=== PATIENT | male | born 1945 | race Two or more races ===

== ENCOUNTER → 2016-11-11 | Outpatient (CLI) | payer MEDICARE, OTHER ==
[~2016-11-11] MED LIST: FAMO20TA18 PO; VIMOVO PO; VITAMIN D PO
--- NOTE | 2016-11-11 14:42 | RADRPT ---
PROCEDURE: Left knee radiographs. CLINICAL INDICATION: Left knee pain. Postop. TECHNIQUE: Three views. Weight bearing. Frontal, lateral, and patellar view. COMPARISON: 07/02/2016. FINDINGS: There is no fracture or dislocation. The soft tissues are normal. There is a total left knee constrained arthroplasty which appears satisfactory. There is no lytic or blastic lesion. There is no joint effusion. IMPRESSION: 1. Satisfactory postoperative appearance of the left knee. RPTAT: QQ .Charles Carnes MD, Date Time Electronically viewed and signed by .Charles Carnes MD, on 11/11/2016 14:42 .R/
--- NOTE | 2016-11-12 07:43 | HKNOTE ---
DATE OF SERVICE: 11/11/2016 HISTORY OF PRESENT ILLNESS: This is a 71-year-old male who presents today for followup regarding left total knee arthroplasty performed on 05/26/2016. The patient is 6 months postop and doing well. The patient states that at times of cold temperature/weather, he experiences aching to the knee. Patient has episodes of mild sharp pain to the left knee that occur typically once a week. States that [id number] Tylenol helps alleviate those symptoms. Patient is very pleased status post surgery as he is able to walk for extended amounts of time with no limit. The patient denies any falls. Denies any calf pain, chest pain or shortness of breath. No signs of any DVT. The patient has been performing his activities of daily living without complaint, status post knee replacement. The patient has also had a right total knee arthroplasty in the past which also continues to do well. OBJECTIVE: VITAL SIGNS: Blood pressure 188/84, temperature 98.4 degrees, pulse 60, respiratory rate 12, height 5 feet 8 inches, weight 202 pounds. Gait is normal and nonantalgic. Well healed scarring to the left knee. There is about 5 to 10-degree lag from full extension and flexion up to 125 to 130 degrees. No pain with range of motion. No tenderness to palpation. Normal sensory examination to light touch. Negative Homans sign. X-RAY: Mild posterior slope to the proximal tibia on lateral view. All components appear well aligned and appear to be well attached and integrated to the bone. No signs of any lucency between metal and bone. ASSESSMENT AND PLAN: 1. Patient remains in possession of antibiotic card. 2. Dental prophylaxis discussed in detail with patient today. 3. The patient may continue activities of daily living. As always, patient was recommended to avoid high stressful activities to the knee. At this stage, the patient continues to progress well. He may follow up on as needed basis. It was made clear to the patient, however, should he experience any issues with either knee, he may call in for repeat evaluation as we would be glad to see him. Dr. Donato has also seen patient today in office and agrees with the plan. Dictated By: SUMIT FAIRBANKS for ELIZABETH DONATO MD, KP/MAI Conf#: [id number] [facility]#: [id number] MTDD
== END | disposition home or self-care (01) ==
LOC: HKI 13:20
DX: Z47.1 Aftercare following joint replacement surgery (principal); Z96.652 Presence of left artificial knee joint
CPT/HCPCS: 73562; G0463

== ENCOUNTER → 2018-12-28 | Outpatient (CLI) | payer MEDICARE, OTHER ==
--- NOTE | 2018-12-28 17:13 | CONS ---
Assessment/Plan Assessment/Plan Hospital Course (Demo Recall) 73-year-old male status post bilateral total knee arthroplasty in 2016. He was doing well until 2 months ago when he had some swelling and pain in the left knee. Currently there are no signs or symptoms of infection. Suspicion for infection is low. On examination he is subtle instability in the a P direction. This may be causing his pain and swelling. It is encouraging that his pain improves with activity such as walking. I am hopeful physical therapy with strengthening the quadriceps and optimizing knee kinematics will alleviate his pain and swelling. If his pain and swelling do not resolve with physical therapy and/or becomes worse and/or he has fevers or chills, erythema, warmth of the joint he should return to clinic and at that time an ESR, CRP, CBC will be ordered. Consultation Date/Type/Reason Admit Date/Time Date of Consultation: Dec 28, 2018 Reason for Consultation Left total knee pain and swelling Date/Time of Note DATE: 12/28/18 TIME: 17:00 Hx of Present Illness This is a 73-year-old male status post bilateral total knee arthroplasties by Dr. Hurtado 2016. There were done 6 months apart with the right being done prior to the left. He was doing fine with no difficulty until a couple months ago he began having some pain and swelling in his left total knee. Denies any fevers or chills. Denies any erythema denies any warmth. Denies any injury. States when he wakes up in the morning the pain is sometimes an 8/10 and is dull and throbbing. However after he stretches and walks around his pain significantly decreases and currently is 0. His pain is worse when sitting. Walking makes the pain better. Pain is anterior lateral. He has not had any treatment so far. He had no complications from surgery or any signs of infection in the healing process. He had no recent infections. He does not limp. He uses stairs normally. He denies any change in range of motion. And does not use an assistive device to walk. Does state has some numbness. Patient denies fever, chills, shortness of breath, chest pain, nausea/vomiting, constipation, diarrhea, Past Medical History Denies past medical history Home Meds Reported Medications [Vimovo] No Conflict Check, 500 MG PO BID 5/27/16 [Vitamin D] No Conflict Check, 3000 U PO DAILY 02/14/16 Famotidine* (Famotidine*) 20 Mg Tablet, 20 MG PO DAILY, #30 TAB 02/14/16 Allergies: Coded Allergies: Penicillins (Verified Allergy, Intermediate, RASH, 05/26/16) Past Surgical History Bilateral total knee arthroplasties by Dr. Hurtado 2016 performed 6 months apart with the right prior to the left Family History Significant Family History: no pertinent family hx Social History Alcohol Use: other Smoking Status: Former smoker Drug Use: none Exam/Review of Systems Exam Vitals Weight: 200 pounds Height: 5 feet 5 Temperature: 90.4 Heart Rate: 72 Blood Pressure: 130/105 Respiratory Rate: 16 Exam General: Alert, oriented x3. No Acute Distress. Heart: Regular rate and rhythm. Lungs: No respiratory distress. No accessory muscle use. Left lower Extremity: Incision healed. No skin breakdown, no surrounding erythema. Sensation intact to light touch in a sural, saphenous, deep peroneal, superficial peroneal, medial and lateral plantar nerve distribution. Motor is intact, patient able to dorsiflex and plantarflex ankle and extend and flex great toe. Dorsalis Pedis pulse +2, Brisk capillary refill. Compartments are soft. There is a 2+ effusion. The knee is nontender to palpation. ROM: Extension: 0 Flexion: 140 Varus/ Valgus Stability: Stable in extension, flexion, and throughout range of motion A/P Stability: Subtle laxity. Gait: Brisk pace. Non-antalgic. No gait aid. Imaging Imaging Xrays obtained in clinic today and personally reviewed by myself: Bilateral AP and merchant views and a dedicated lateral of the left knee demonstrates left knee s/p TKA. Components in good position and alignment. No signs of wear, osteolysis, loosening, component failure, or fracture. No acute complications. OSBALDO MORRIS MD Dec 28, 2018 17:11
--- NOTE | 2018-12-30 16:24 | RADRPT ---
PROCEDURE: XR knees CLINICAL INDICATION: bilateral knee pain. TECHNIQUE: 4 weightbearing views of the bilateral knees were obtained. COMPARISON: Left knee radiographs dated 11/16/2016 FINDINGS: Right knee: There is no acute fracture dislocation. Osseous structures are intact. There are postsur gical changes of total knee arthroplasty. Hardware appears intact. There is no knee joint effusion. Left knee: There is no acute fracture dislocation. Osseous structures are intact. There are postsurg ical changes of total knee arthroplasty. Hardware appears intact.. There is no knee joint effusion. IMPRESSION: 1. Postsurgical changes of bilateral total knee arthroplasty without evidence of complication. RPTAT: DD Physician Jennifer Date Time Electronically viewed and signed by Physician Jennifer on 12/30/2018 16:24 GILMAR/
== END | disposition home or self-care (01) ==
LOC: HKI 15:51
PROVIDERS: ATTEND Orthopaedic Surgery Adult Reconstructive Orthopaedic Surgery
DX: Z96.653 Presence of artificial knee joint, bilateral (principal); Z88.0 Allergy status to penicillin
CPT/HCPCS: 73562; G0463